=== PATIENT | female | born 1975 ===

== ENCOUNTER 2021-10-22 22:34 | Emergency (ER) | payer BC, OTHER ==
[~2021-10-22] VITALS: Ht 158 cm; Wt 72.6 kg
[2021-10-22] MEDS ORDERED: fentaNYL INJ 100 MCG/2 ML AMP IVP ONE (23:15)
[2021-10-23] MEDS ORDERED: MIDAZOLAM 2 MG/2 ML (VERSED) VIAL ONE (00:07)
[2021-10-23] MEDS ORDERED: morphine INJ 10 MG/ML 1ML (SYR OR VIAL) ONE (00:07)
[2021-10-23] MEDS ORDERED: MIDAZOLAM 5 MG/5 ML (VERSED) VIAL ONE (00:11)
[2021-10-23] MEDS ORDERED: ACHD5005 PO (00:54)
--- NOTE | 2021-10-23 00:54 | ED Fall/Injury ---
General Chief Complaint: Conscious Sedation Stated Complaint: FELL DOWN STAIRS Nursing Triage Note: PT TO RM 7 VIA WC W C/O R ANKLE PAIN D/T FALL AT APPROX 2220. PT REPORTS SHE SLIPPED ON ICE AND FELL DOWN 4 STAIRS. LANGUAGE LINE CONTACTED FOR TRIAGE. History of Present Illness Date Seen by Provider: Oct 22, 2021 Allergies and Home Medications Allergies Coded Allergies: No Known Drug Allergies (Unverified , 10/22/21) Past Mblxcpd-Lepcgb-Wegnkr Hx Patient Social History Tobacco Use?: No Use of E-Cig and/or Vaping dev: No Substance use?: No Alcohol Use?: Yes Alcohol type: Wine Immunizations Up To Date Influenza Vaccine Up-to-Date: Yes; Up-to-Date First/Initial COVID19 Vaccinat: 2020 Second COVID19 Vaccination Jayden: 2020 Third COVID19 Vaccination Date: 2020 COVID19 Vaccine Boat [place]: [employer] Past Medical History Last Menstrual Period: Aug 21, 2021 Physical Exam Vital Signs Vital Signs - First Documented 10/22/21 10/23/21 22:39 00:20 Temp 35.9 Pulse 93 Resp 20 B/P (MAP) 118/61 (80) Pulse Ox 99 O2 Delivery Room Air O2 Flow Rate 2.00 Capillary Refill : Less Than 3 Seconds Height, Weight, BMI Height: '" Weight: lbs. oz. kg; 29.00 BMI Method: Procedures/Interventions Procedure: CONSCIOUS SEDATION AND CLOSED REDUCTION OF RT ANKLE FRACTURE DISLOCATION Progress/Results/Core Measures Results/Orders Lab Results Laboratory Tests Test 10/22/21 23:00 Range/Units Serum Test, Qualitative NEGATIVE NEGATIVE My Orders Orders - PATRICK AMAYA DO Hcg,Qualitative Serum (10/22/21 23:02) Fentanyl Inj (Sublimaze Injection) (10/22/21 23:15) Morphine Injection (Morphine Injection (10/23/21 00:07) Midazolam Injection (Versed Injection) (10/23/21 00:07) Midazolam Injection (Versed Injection) (10/23/21 00:11) Ankle, Right, 2 Views (10/23/21 00:32) Ed Ortho/Other Supplies Order (10/23/21 00:47) Crutches (10/23/21 00:47) Wound Dressing-Ed (10/23/21 00:47) Rx-Hydrocodone/Apap 5-325 Mg (Rx-Vicodin (10/23/21 01:00) Medications Given in ED Current Medications Medications Dose Ordered Sig/Smith Route Start Time Stop Time Status Last Admin Dose Admin Fentanyl Citrate 50 mcg ONCE ONCE IVP 10/22/21 23:15 10/22/21 23:16 DC 10/22/21 23:44 50 MCG Morphine Sulfate 10 mg STK-MED ONCE .ROUTE 10/23/21 00:07 10/23/21 00:09 DC 10/23/21 00:15 5 MG Vital Signs/I&O 10/22/21 10/23/21 10/23/21 10/23/21 22:39 00:10 00:10 00:15 Temp 35.9 36.0 36.0 Pulse 93 102 92 Resp 20 14 14 B/P (MAP) 118/61 (80) 141/68 121/71 Pulse Ox 99 100 100 O2 Delivery Room Air Room Air Room Air Room Air 10/23/21 10/23/21 10/23/21 00:20 00:25 00:30 Temp 36.0 36.0 Pulse 83 84 79 Resp 15 14 B/P (MAP) 125/76 128/78 Pulse Ox 97 100 100 O2 Delivery Nasal Cannula Nasal Cannula Nasal Cannula O2 Flow Rate 2.00 2.00 2.00 Blood Pressure Mean: 80 Departure Impression Primary Impression: Fall down steps Additional Impression: CLOSED RIGHT ANKLE TRIMALLEOLAR FRACTURE AND DISLOCATION Disposition: 01 HOME, SELF-CARE Condition: Stable Departure-Patient Inst. Decision time for Depature: 00:50 Referrals: GIL MOSCOSO MD Patient Instructions: Ankle Fracture (DC), Going Up and Down Curbs or Stairs With a Walker or Crutches, How to Use Crutches, Moderate Sedation in Adults (DC), Moderate Sedation in Children (DC), SPLINT CARE Add. Discharge Instructions: LEAVE SPLINT ON AT ALL TIMES USE CRUTCHES AT ALL TIMES--NO WEIGHT BEARING ON RIGHT FOOT ICE TO AREA AT 20 MINUTE INTERVALS ELEVATE FOOT MUCH POSSIBLE FOLLOW UP WITH DR. MOSCOSO IN OFFICE IN 2-3 DAYS--CALL OFFICE ON Sunday TO SCHEDULE APPOINTMENT Scripts Hydrocodone/Acetaminophen (Hydrocodone-Acetamin 5-325 mg) 1 Each Tablet 1 EACH PO Q4-6 HOURS PRN for PAIN, #20 TAB Prov: PATRICK AMAYA DO 10/23/21 PATRICK AMAYA DO Oct 23, 2021 00:54
[2021-10-23 03:09] VITALS: BP 144/90
--- NOTE | 2021-10-23 06:54 | Diagnostic Imaging Report ---
ANKLE, RIGHT, 2 VIEWS INDICATION: Ankle fracture status post reduction COMPARISON: Prior day at 10:57 PM TECHNIQUE: 2 views of the right ankle FINDINGS: The Albert B fracture dislocation has improved alignment. The avulsion fracture of the medial malleolus now has only 5 mm of lateral displacement. There is widening of the medial clear space due to lateral subluxation of the talus. Pushup fracture of the distal fibula has improved alignment but remains laterally displaced. Posterior malleolar fracture is in noted. IMPRESSION: Improved alignment and position status post reduction of Albert B fracture or dislocation. Dictated by: Dictated on workstation # [id number]
--- NOTE | 2021-10-23 07:15 | Diagnostic Imaging Report ---
ANKLE, RIGHT, 3 VIEWS INDICATION: Right ankle pain COMPARISON: None available. TECHNIQUE: 3 views of right ankle FINDINGS: Posterolateral dislocation of the ankle with the following fractures present: 1. Acute partial fracture of the lateral malleolus at the level of the syndesmosis has greater than 1 bone width of lateral displacement and angulation. 2. Acute avulsion fracture medial malleolus has greater than 1 cm of lateral displacement. 3. Pushoff fracture in the posterior malleolus is impacted by at least 0.5 cm. IMPRESSION: 1. Acute trimalleolar fracture has a Albert B configuration and there is posterolateral ankle dislocation. Dictated by: Dictated on workstation # [id number]
[2021-10-26] MEDS ORDERED: OXYC5TAB PO (10:06)
== END 2021-10-23 03:17 | disposition home or self-care (01) ==
LOC: ER 22:37
DX: S82.851A Displaced trimalleolar fracture of right lower leg, initial encounter for closed fracture (principal); Z32.02 Encounter for pregnancy test, result negative; W00.1XXA Fall from stairs and steps due to ice and snow, initial encounter
CPT/HCPCS: 36415; 73600; 73610; 84703; 93041

== ENCOUNTER → 2021-10-25 | Outpatient (CLI) | payer BC ==
[~2021-10-25] MED LIST: ACHD5005 PO; HYDROmorphone 2 MG/ML VIAL (DILAUDID) ONE; KETOROLAC 30 MG/ML VIAL ONE; LIDOCAINE PF 2% 5 ML (XYLOCAINE) VIAL ONE; MIDAZOLAM 2 MG/2 ML (VERSED) VIAL ONE; ONDANSETRON 4 MG/2 ML (SDV) Z0FRAN ONE; OXYC5TAB PO; PHENYLEPHRINE 100 MCG/ML 10 ML (ANESTHESIA) SYR ONE; SEVOFLURANE (ULTANE) 15 ML INHAL SOLN ONE; fentaNYL INJ 100 MCG/2 ML AMP ONE; proPOfol 200 MG/20 ML (DIPRIVAN) VIAL IV ONE
== END ==
LOC: ORTHO 15:15
PROVIDERS: ATTEND Orthopaedic Surgery
DX: S82.851A Displaced trimalleolar fracture of right lower leg, initial encounter for closed fracture (principal); X58.XXXA Exposure to other specified factors, initial encounter
CPT/HCPCS: 99203

== ENCOUNTER → 2021-11-10 | Outpatient (CLI) | payer BC ==
[~2021-11-10] MED LIST changes: -HYDROmorphone 2 MG/ML VIAL (DILAUDID) ONE; -KETOROLAC 30 MG/ML VIAL ONE; -LIDOCAINE PF 2% 5 ML (XYLOCAINE) VIAL ONE; -MIDAZOLAM 2 MG/2 ML (VERSED) VIAL ONE; -ONDANSETRON 4 MG/2 ML (SDV) Z0FRAN ONE; -PHENYLEPHRINE 100 MCG/ML 10 ML (ANESTHESIA) SYR ONE; -SEVOFLURANE (ULTANE) 15 ML INHAL SOLN ONE; -fentaNYL INJ 100 MCG/2 ML AMP ONE; -proPOfol 200 MG/20 ML (DIPRIVAN) VIAL IV ONE
== END ==
LOC: ORTHO 09:55
PROVIDERS: ATTEND Orthopaedic Surgery
DX: Z47.89 Encounter for other orthopedic aftercare (principal)

== ENCOUNTER → 2021-12-01 | Outpatient (CLI) | payer BC ==
--- NOTE | 2021-12-01 11:14 | Diagnostic Imaging Report ---
INDICATION: Follow-up fractures COMPARISON: 10/22/2021 TECHNIQUE: 3 radiographs of the right ankle dated 12/01/2021. FINDINGS: 2 screws are identified transfixing previously noted medial malleolar fracture with alignment appearing improved and nearly anatomic. Lateral plate and screw fixation of the distal fibula is noted in near anatomic alignment without evidence of hardware complication. Fracturing of the posterior malleolus is again identified in improved alignment since prior examination. Persisting fracture fragment is identified anterior to the ankle joint. Additional fracture fragments are seen superior to the talar neck. Interval reduction of previously noted ankle joint dislocation. The talar dome is intact. Ankle mortise is symmetric when accounting for postsurgical changes. Small plantar calcaneal enthesophyte. No new fracture or dislocation. IMPRESSION: Interval postsurgical changes associated with previously noted trimalleolar ankle fracture dislocation with alignment appearing improved without evidence of hardware complication or new acute osseous abnormality. Persisting fracture fragments are seen anterior to the ankle joint and the superior to the talar neck. Persisting soft tissue swelling about the ankle. Dictated by: Dictated on workstation # [id number]
== END ==
LOC: ORTHO 10:43
PROVIDERS: ATTEND Orthopaedic Surgery
DX: Z47.89 Encounter for other orthopedic aftercare (principal); Z98.890 Other specified postprocedural states
CPT/HCPCS: 73610

== ENCOUNTER → 2021-12-29 | Outpatient (CLI) | payer BC ==
--- NOTE | 2021-12-29 16:07 | Diagnostic Imaging Report ---
EXAM: Right ankle, multiple views REASON FOR EXAM: Follow-up ankle fracture. Previous surgery. COMPARISON: 12/01/2021 FINDINGS: Three radiographic views of the right ankle were obtained. Postsurgical changes of prior ORIF are identified. Orthopedic sideplate and screws are seen traversing the lateral margins of the distal fibula. Hardware is intact and appears well-seated. Two partially threaded screws are also again identified traversing the medial malleolus and the distal tibia. Chronic deformities of the distal tibia and fibula are noted consistent with old fractures. Posterior malleolar fracture line is much less conspicuous and may be on the basis of interval healing. No new acute deformity is seen. No unexpected radiopaque foreign bodies are identified. Osseous fragment is again noted projecting anterior to the tibiotalar joint space. IMPRESSION: 1. Redemonstration of nonacute fractures and postsurgical changes of the right ankle, as above. Dictated by: Dictated on workstation # [id number]
== END ==
LOC: ORTHO 15:51
PROVIDERS: ATTEND Orthopaedic Surgery
DX: Z47.89 Encounter for other orthopedic aftercare (principal); Z98.890 Other specified postprocedural states
CPT/HCPCS: 73610

== ENCOUNTER → 2022-01-26 | Outpatient (CLI) | payer BC ==
--- NOTE | 2022-01-26 16:19 | Diagnostic Imaging Report ---
EXAMINATION: Right ankle radiographs, 3 views. COMPARISON: December 29, 2021. HISTORY: 47-year-old female, right ankle pain. Postoperative evaluation. FINDINGS: There are 2 fixation screws traversing a fracture deformity of the medial malleolus. There is a persistent visible fracture line and no change in fracture alignment. The fixation screws are intact. There is sideplate and screw fixation hardware at the level of the distal fibula which appears intact. There is no visible residual distal fibular fracture. The alignment of the ankle mortise is unremarkable. There is no large tibiotalar joint effusion. There is an area of ossification adjacent to the anterior aspect of the tibiotalar joint could relate to heterotopic ossification. This is fairly similar to the prior study. There is a calcaneal heel spur and mild degenerative type enthesopathy at the Achilles tendon insertion. IMPRESSION: 1. Intact fixation hardware at the level of the medial malleolus and distal fibula as described above. 2. There does appear to be a residual fracture line involving the medial malleolus and no radiographically apparent fracture line at the level of the distal fibula. 3. No interval acute osseous abnormality. Dictated by: Dictated on workstation # [id number]
== END ==
LOC: ORTHO 15:13
PROVIDERS: ATTEND Orthopaedic Surgery
DX: Z47.89 Encounter for other orthopedic aftercare (principal)
CPT/HCPCS: 73610

== ENCOUNTER → 2022-02-21 | Outpatient (CLI) | payer BC | LOC: ORTHO 03:00 | PROVIDERS: ATTEND Orthopaedic Surgery | DX: Z47.89 Encounter for other orthopedic aftercare (principal) | CPT/HCPCS: 99213 ==

== ENCOUNTER → 2022-06-27 | Outpatient (CLI) | payer BC ==
--- NOTE | 2022-06-27 13:38 | Diagnostic Imaging Report ---
INDICATION: Followup postsurgical changes. EXAMINATION: Right ankle 06/27/2022 COMPARISON: 01/26/2022 FINDINGS: 3 views of the ankle. There is a sideplate with multiple screws traversing the distal fibula. There are 2 distally threaded screws extending through the medial malleolus. Fracture sites are in good anatomic alignment. No acute fractures appreciated. No dislocations. Ankle mortise intact. Osseous fragments anterior to the tibiotalar joint space stable from previous imaging. IMPRESSION: 1. Uncomplicated postoperative findings. Dictated by: Dictated on workstation # [id number]
== END ==
LOC: ORTHO 11:26
PROVIDERS: ATTEND Orthopaedic Surgery
DX: Z48.89 Encounter for other specified surgical aftercare (principal); M25.571 Pain in right ankle and joints of right foot
CPT/HCPCS: 73610; G0463; 99213